=== PATIENT | male | born 1975 | race Caucasian/White ===

== ENCOUNTER 2017-09-17 21:02 | Inpatient (IN) | payer MEDICAID ==
[~2017-09-17] VITALS: Ht 175.3 cm; Wt 87.1 kg
[2017-09-17 21:07] VITALS: BP 154/77
--- NOTE | 2017-09-17 21:14 | NUR ---
PT.AMBULATED TO [facility]
--- NOTE | 2017-09-17 21:15 | NUR ---
TO ER CHAIR D
[2017-09-17] MEDS ORDERED: VANCOMYCIN IV STA (22:38)
[2017-09-17] MEDS ORDERED: NACL 0.9% 1,000 ML IV ONE (22:38)
[2017-09-17] MEDS ORDERED: DEXTROSE 5% IV STA (22:38)
--- NOTE | 2017-09-17 22:45 | NUR ---
Moved pt to Bed 4.
--- NOTE | 2017-09-17 22:58 | NUR ---
PAVITHRA ROSE AND LAB AT BEDSIDE-BLOOD SENT TO LAB
--- NOTE | 2017-09-17 23:10 | NUR ---
Flushed PICC line to right AC. Very strong resistance met and unable to draw blood and viability is questionable. Notified Dr Clark.
[2017-09-17] MEDS ORDERED: VANCOMYCIN 1,000 MG VIAL ONE (23:21)
[2017-09-17 23:27] LABS: BASOPHILS # (AUTO) 0.1 K/uL (0.00-0.22); BASOPHILS % (AUTO) 0.8 % (0.0-2.0); EOSINOPHILS # (AUTO) 0.2 K/uL (0-0.4); EOSINOPHILS % (AUTO) 3.4 % (0.0-4.0); HEMATOCRIT 32.5 % (36-52); HEMOGLOBIN 10.8 g/dL (12.0-18.0); LYMPHOCYTES # (AUTO) 0.9 K/uL (2.0-11.5); LYMPHOCYTES % (AUTO) 13.2 % (20.5-51.1); MEAN CORPUSCULAR HEMOGLOBIN 24 pg (27-31); MEAN CORPUSCULAR HGB CONC 33 g/dL (33-37); MEAN CORPUSCULAR VOLUME 71.8 fL (80-94); MONOCYTES # (AUTO) 0.3 K/uL (0.8-1.0); MONOCYTES % (AUTO) 5.3 % (1.7-9.3); PLATELET COUNT (AUTO) 286 K/uL (140-450); RED BLOOD CELL COUNT(AUTO) 4.53 MIL/uL (4.20-6.10); RED CELL DISTRIBUTION WIDTH 16.8 % (11.6-13.7); WHITE BLOOD COUNT (AUTO) 6.5 K/uL (4.8-10.8)
[2017-09-17 23:32] LABS: ANION GAP 12.2 (8-16); CARBON DIOXIDE 28.7 mmol/L (21-32); CREATININE 1.9 mg/dL (0.7-1.3); TOTAL BILIRUBIN 0.4 mg/dL (0.0-1.0)
[2017-09-17 23:35] LABS: NEUTROPHILS % (AUTO) 77.3 % (42.2-75.2)
[2017-09-17 23:37] LABS: PROTHROMBIN TIME 10.8 secs (10.8-13.4)
[2017-09-17 23:38] LABS: POTASSIUM 2.9 mmol/L (3.5-5.1)
[2017-09-18] VITALS (7 sets, daily range): BP systolic 119–157; BP diastolic 66–98
[2017-09-18] MEDS ORDERED: POTASSIUM CHLORIDE 10 MEQ TABER PO ONE (00:45)
[2017-09-18] MEDS ORDERED: NACL 0.9% 1,000 ML IV ONE (00:55)
[2017-09-18] MEDS ORDERED: KCL 20 MEQ/WATER INJ PREMIX 100 ML IV ONE (00:55)
[2017-09-18] MEDS ORDERED: ACETAMINOPHEN 325 MG TAB PO PRN (01:05)
[2017-09-18] MEDS ORDERED: HYDROcodone/APAP 7.5/325 MG 1 TAB PO PRN (01:05)
[2017-09-18] MEDS ORDERED: ONDANSETRON 4 MG/2 ML VIAL IVP PRN (01:05)
[2017-09-18] MEDS ORDERED: VANCOMYCIN PER PHARMACY MC PRN (01:15)
[2017-09-18] MEDS ORDERED: [UNRECOGNIZED DRUG - CODE] IV (01:36)
[2017-09-18 01:51] LABS: FREE T4 (FREE THYROXINE) 1.11 ng/dL (0.76-1.46); MAGNESIUM 1.9 mg/dL (1.8-2.4); PHOSPHORUS 3.4 mg/dL (2.5-4.9); THYROID STIMULATING HORMONE 2.15 uIU/mL (0.34-3.74)
--- NOTE | 2017-09-18 02:05 | NUR ---
Patient will be admitted to care of Dr Garcia. Admited to ICU. Will go to room 2. Belongings list completed. Report to Octavia.
--- NOTE | 2017-09-18 02:20 | NUR ---
PT ARRIVED IN THE UNIT AT 0210 VIA GURNEY. PT ABLE TO WALK FROM GURNEY TO BED. PT AWAKE, ALERT AND ORIENTED. ABLE TO MAKE NEEDS KNOWN. PT AFEBRILE. VS STABLE AT THIS TIME. PT ABLE TO ANSWER QUESTIONS AND PROVIDE INFORMATION. PT IS COOPERATIVE. LUNG SOUNDS CLEAR. PT IN ROOM AIR. NO C/O OF SOB. DOES NOT APPEAR TO BE IN ANY DISTRESS. S1+S2 HEARD. SINUS RHYTHM ON MONITOR. DENIES CHEST PAIN. PULSES ARE PALPABLE IN ALL EXTREMITIES. ABDOMEN ROUND, SOFT AND NONDISTENDED. BOWEL SOUNDS ACTIVE IN ALL QUADRANTS. LAST BM WAS 09/17/17. NO NAUSEA OR VOMITING. PT ABLE TO USE URINAL. NO REPORT OF PAIN WHILE URINATING. PT CAME IN THE UNIT WITH FER PICC LINE THAT HAS RESISTANCE WHEN ATTEMPTED TO FLUSH. PT HAS PERIPHERAL IV ACCESS 18G. RECEIVED PT WITH NS RUNNING AT 150ML/HR AND POTASSIUM REPLACEMENT RUNNING. PT DENIES PAIN. PT HAS NO PRESSURE SORES BUT HAS AN OPEN WOUND ON LEFT GREAT TOE THAT IS COVERED. WOUND MEASURED AND WAS 2.3X2. NEW DRESSING PUT IN PLACE AND PICTURE TAKEN. FOOT ELEVATED PER PT REQUEST. CALL LIGHT WITHIN REACH. BED AT LOW POSSIBLE POSITION. ALL SAFETY PRECAUTIONS ARE IN PLACE. WILL CONTINUE TO MONITOR PT.
--- NOTE | 2017-09-18 02:21 | NUR ---
Melissa williamson in EDM - 09/18/17 at 0222 by MEDMARIANA Patient will be admitted to care of Dr Garcia. Admited to ICU. Will go to room 2. Belongings list completed. Report to Octavia.
[2017-09-18] MEDS ORDERED: DEXTROSE 50% 50 ML SYR IVP PRN (02:30)
[2017-09-18] MEDS ORDERED: FERRIC GLUCONATE 125 MG in NACL 0.9% 100 ML IV SCH (03:00)
[2017-09-18] MEDS ORDERED: FERRIC GLUCONATE 62.5 MG/5 ML AMP IV ONE (03:15)
--- NOTE | 2017-09-18 05:12 | NUR ---
VS STABLE AT THIS TIME. NO CHANGE IN CONDITION. DOES NOT APPEAR TO BE IN ANY SIGNS OF DISTRESS. NO C/O PAIN. PT APPEARS TO BE LAYING IN BED COMFORTABLY. CALL LIGHT WITHIN REACH. ALL SAFETY PRECAUTIONS IN PLACE.
[2017-09-18] MEDS: BLOOD GLUCOSE MONITORING 1 DEV DEV FS SCH ×4 (06:32→20:36)
[2017-09-18] MEDS: INSULIN LISPRO SLIDING SCALE 100 UNITS/ML VIAL SUBQ PRN ×4 (06:33→20:39)
--- NOTE | 2017-09-18 07:02 | NUR ---
PATIENT HAS BEEN SCREENED AND CATEGORIZED MODERATE NUTRITION RISK. PATIENT WILL BE SEEN WITHIN 3-5 DAYS OF ADMISSION. 09/20/17-09/22/17 ELDA TERRY MS, RDN
--- NOTE | 2017-09-18 07:05 | NUR ---
REPORT GIVEN TO MORNING RN FOR CONTINUITY OF CARE. PT IN STABLE CONDITION AT THIS TIME.
[2017-09-18 07:19] LABS: BASOPHILS # (AUTO) 0.1 K/uL (0.00-0.22); EOSINOPHILS # (AUTO) 0.2 K/uL (0-0.4); EOSINOPHILS % (AUTO) 4.2 % (0.0-4.0); HEMATOCRIT 26.7 % (36-52); HEMOGLOBIN 8.9 g/dL (12.0-18.0); LYMPHOCYTES % (AUTO) 18.3 % (20.5-51.1); MEAN CORPUSCULAR HEMOGLOBIN 24 pg (27-31); MEAN CORPUSCULAR HGB CONC 34 g/dL (33-37); MEAN CORPUSCULAR VOLUME 71.5 fL (80-94); MONOCYTES # (AUTO) 0.4 K/uL (0.8-1.0); MONOCYTES % (AUTO) 7.5 % (1.7-9.3); PLATELET COUNT (AUTO) 230 K/uL (140-450); RED BLOOD CELL COUNT(AUTO) 3.73 MIL/uL (4.20-6.10); RED CELL DISTRIBUTION WIDTH 16.3 % (11.6-13.7); WHITE BLOOD COUNT (AUTO) 5.7 K/uL (4.8-10.8)
[2017-09-18 07:29] LABS: ANION GAP 13.7 (8-16); CARBON DIOXIDE 25.8 mmol/L (21-32); CREATININE 1.7 mg/dL (0.7-1.3); POTASSIUM 3.5 mmol/L (3.5-5.1)
--- NOTE | 2017-09-18 07:30 | NUR ---
Received patient on bed.Initial assessment done to patient.No co pain nor any discomfort .left toe dressing dry and intact.NSR the monitor.Pt on room air.pt uses the urinal Addendum: 09/18/17 at 1259 by Estefany Tillman RN RN PT WITH RIGHT UPPER PICC LINE WITH RESISTANCE WHEN FLUSHING .FLUSH GOES IN VERY SLOW..NO BLOOD RETURN .
[2017-09-18 07:46] LABS: MAGNESIUM 1.8 mg/dL (1.8-2.4); PHOSPHORUS 3.1 mg/dL (2.5-4.9)
[2017-09-18] MEDS: LACTOBACILLUS RHAMNOSUS GG 1 EACH CAP PO SCH (08:30)
[2017-09-18] MEDS: ECOTRIN 81 MG TABEC PO SCH (08:30)
[2017-09-18] MEDS: ATORVASTATIN 20 MG TAB PO SCH (08:30)
[2017-09-18] MEDS: DOCUSATE SODIUM 100 MG GELCAP PO SCH ×2 (08:30→20:31)
[2017-09-18] MEDS: VANCOMYCIN 500 MG in NACL 0.9% 100 ML IV SCH ×2 (11:30→23:09)
[2017-09-18] MEDS ORDERED: PROBIOTIC SCREEN 1 EA MISC MC PRN ×2 (12:00→14:00)
--- NOTE | 2017-09-18 12:00 | NUR ---
PT WITH RIGHT UPPER PICC LINE WITH RESISTANCE WHEN FLUSHING .FLUSH GOES IN VERY SLOW.NO BLOOD RETURN .DR DORADO NOTIFIED.
[2017-09-18] MEDS: PIPER/TAZO 3.375GM/D5W PREMIX 50 ML IV SCH ×2 (13:31→20:32)
--- NOTE | 2017-09-18 15:39 | NUR ---
RECEIVED REPORT FROM SABINO ARSHAD. PATIENT TO BE TRANSFERRED SHORTLY FROM ICU.
--- NOTE | 2017-09-18 15:39 | NUR ---
REPORT GIVEN TO ATA.GIRLFRIEND aware of transfer
--- NOTE | 2017-09-18 16:11 | NUR ---
PATIENT HERE FROM ICU, BROUGHT VIA WHEELCHAIR. PATIENT IS AAOX4, NO SIGNS AND SYMPTOMS OF ACUTE DISTRESS NOTED AT THIS TIME. HAS PICC LINE TO THE RIGHT UPPER ARM, LUMENS ARE HARD TO FLUSH. PATIENT ALSO HAS IV TO RIGHT HAND 18G. SALINE LOCK AT THIS TIME. PATIENT HAS DRESSING TO LEFT BIG TOE. SCDS ON. ORIENTED PATIENT TO THE ROOM, EXPLAINED THE CALL LIGHT. BED IN LOWEST POSITION, SIDE RAILS UP X2, CALL LIGHT WITHIN REACH. GIRLFRIEND AT THE BEDSIDE. WILL CONTINUE TO MONITOR.
--- NOTE | 2017-09-18 16:50 | NUR ---
Dr Greenberg notified pt co not being able to breath.Orders received for steriods. Respiratory therapist in the room. Addendum: 09/18/17 at 1654 by Estefany Tillman RN RN pls disregard above notes it is for a different patient.
--- NOTE | 2017-09-18 19:17 | NUR ---
ENDORSED PATIENT TO END STAPLER RN FOR CONTINUITY OF CARE. PATIENT IN STABLE CONDITION.
--- NOTE | 2017-09-18 19:20 | NUR ---
RECEIVED REPORT AT [facility] FROM [facility] NURSE FOR CONTINUITY OF CARE. PT IS AAO X4. PT IS ON RA. NO SOB. NO COMPLAINTS OF PAIN AT THIS TIME. IV LINE NOTED RIGHT UPPER ARM PICC LINE AND RIGHT HAND 18G SALINE LOCK. BED LOWERED WITH CALL LIGHT WITHIN REACH. WILL CONTINUE TO MONITOR.
--- NOTE | 2017-09-18 21:44 | NUR ---
ADVISE PT OF URINALYSIS. PT AWAKE. NO S/S OF DISTRESS. WILL CONTINUE TO MONITOR.
[2017-09-18 22:20] LABS: APPEARANCE,URINE CLEAR (CLEAR); BILIRUBIN,URINE NEGATIVE (NEGATIVE); BLOOD, URINE TRACE-I (NEGATIVE); LEUKOCYTE ESTERASE ,URINE NEGATIVE (NEGATIVE); NITRITE, URINE NEGATIVE (NEGATIVE); PH,URINE 6.5 (5.0-9.0); UGLUCOSE NEGATIVE (NEGATIVE)
[2017-09-18 22:22] LABS: COLOR,URINE STRAW (YELLOW)
[2017-09-18 22:40] LABS: BARBITURATE, URINE NEG. ng/ml (NEG <=200); BENZODIAZEPINE, URINE NEG. ng/mL (NEG <=200); CANNABINOID, URINE NEG. ng/mL (NEG <=50); COCAINE, URINE NEG. ng/mL (NEG <=300); OPIATE, URINE NEG. ng/mL (NEG <=2000); PHENCYCLIDINE SCREEN,URINE NEG. ng/mL (NEG <=25)
[2017-09-18 22:41] LABS: RBC,URINE 0-5 (RARE) /HPF (0-5); WBC,URINE 0-5 (RARE) /HPF (0-5)
--- NOTE | 2017-09-18 23:51 | NUR ---
GAVE PT MEDICATION AND ASSESS VITALS. PT IS SLEEPING. NO COMPLAINTS OF PAIN AT THIS TIME. NO SOB. NO S/S OF DISTRESS. WILL CONTINUE TO MONITOR.
[2017-09-19 04:00] VITALS: BP 118/72
--- NOTE | 2017-09-19 04:16 | NUR ---
TOOK PATIENTS VITAL SIGNS. PT ASLEEP. NO S/S OF DISTRESS, NO SOB. NO COMPLAINTS OF PAIN. WILL CONTINUE TO MONITOR.
[2017-09-19] MEDS: PIPER/TAZO 3.375GM/D5W PREMIX 50 ML IV SCH ×3 (04:48→20:36)
--- NOTE | 2017-09-19 04:56 | NUR ---
PT AMBULATED TO BR WITH STEADY GAIT, DUE ZOSYN IVPB ADMINISTERED, DENIES PAIN, PT REQUESTING FOR STOOL SOFTENER, OFFERED PRUNE JUICE AND SAID "THAT WILL BE REY", PROVIDED WITH PRUNE JUICE X2.
[2017-09-19] MEDS: BLOOD GLUCOSE MONITORING 1 DEV DEV FS SCH ×4 (06:17→21:46)
--- NOTE | 2017-09-19 06:20 | NUR ---
TOOK BLOOD SUGAR FOR PT BS 120. PT AWOKE ONCE I CAME INTO THE ROOM. PT WENT BACK TO SLEEP. NO SOB NO SIGNS OF DISTRESS. WILL CONTINUE TO MONITOR.
--- NOTE | 2017-09-19 07:14 | NUR ---
GAVE REPORT TO DAYSHIFT NURSE AT BEDSIDE. PT SLEEPING. NO SOB NO S/S OF DISTRESS.
--- NOTE | 2017-09-19 07:15 | NUR ---
RECEIVED REPORT FROM ADVERTISING DISPATCH CLERK RN. PATIENT IS AAOX4, NO SIGNS AND SYMPTOMS OF ACUTE DISTRESS NOTED AT THIS TIME. HAS PICC LINE TO THE RIGHT UPPER ARM, LUMENS ARE HARD TO FLUSH. PATIENT ALSO HAS IV TO LEFT WRIST 22G. SALINE LOCK AT THIS TIME. PATIENT HAS DRESSING TO LEFT BIG TOE. SCDS ON. DISCUSSED PLAN OF CARE WITH PATIENT AND HE VERBALIZED UNDERSTANDING. BED IN LOWEST POSITION, SIDE RAILS UP X2, CALL LIGHT WITHIN REACH. GIRLFRIEND AT THE BEDSIDE. WILL CONTINUE TO MONITOR.
[2017-09-19 08:00] VITALS: BP 145/80
[2017-09-19] MEDS: ATORVASTATIN 20 MG TAB PO SCH (08:46)
[2017-09-19] MEDS: LACTOBACILLUS RHAMNOSUS GG 1 EACH CAP PO SCH (08:46)
[2017-09-19] MEDS: ECOTRIN 81 MG TABEC PO SCH (08:47)
[2017-09-19] MEDS: HYDROcodone/APAP 5/325 MG 1 TAB TAB PO PRN ×2 (08:47→20:36)
[2017-09-19] MEDS: DOCUSATE SODIUM 100 MG GELCAP PO SCH ×2 (08:47→20:36)
--- NOTE | 2017-09-19 10:15 | NUR ---
DR GA CAME AND DID THE DRESSING CHANGE. PATIENT TOLERATED WELL. WILL CONTINUE TO MONITOR.
[2017-09-19 11:21] LABS: EOSINOPHILS # (AUTO) 0.2 K/uL (0-0.4); EOSINOPHILS % (AUTO) 4.9 % (0.0-4.0); HEMATOCRIT 28.8 % (36-52); HEMOGLOBIN 9.6 g/dL (12.0-18.0); LYMPHOCYTES # (AUTO) 0.8 K/uL (2.0-11.5); LYMPHOCYTES % (AUTO) 15.7 % (20.5-51.1); MEAN CORPUSCULAR HEMOGLOBIN 24 pg (27-31); MEAN CORPUSCULAR HGB CONC 33 g/dL (33-37); MEAN CORPUSCULAR VOLUME 71.8 fL (80-94); MONOCYTES # (AUTO) 0.4 K/uL (0.8-1.0); MONOCYTES % (AUTO) 7.6 % (1.7-9.3); NEUTROPHILS # (AUTO) 3.5 K/uL (1.8-7.7); NEUTROPHILS % (AUTO) 70.8 % (42.2-75.2); PLATELET COUNT (AUTO) 228 K/uL (140-450); RED BLOOD CELL COUNT(AUTO) 4.02 MIL/uL (4.20-6.10); RED CELL DISTRIBUTION WIDTH 16.8 % (11.6-13.7)
[2017-09-19 11:37] LABS: ANION GAP 12.8 (8-16); CARBON DIOXIDE 27.6 mmol/L (21-32); CREATININE 1.6 mg/dL (0.7-1.3); POTASSIUM 3.4 mmol/L (3.5-5.1)
[2017-09-19 11:39] LABS: MAGNESIUM 1.7 mg/dL (1.8-2.4); PHOSPHORUS 3.1 mg/dL (2.5-4.9)
[2017-09-19 12:00] VITALS: BP 131/77
[2017-09-19] MEDS: INSULIN LISPRO SLIDING SCALE 100 UNITS/ML VIAL SUBQ PRN ×3 (12:23→20:44)
[2017-09-19] MEDS: VANCOMYCIN 750 MG in NACL 0.9% 250 ML IV SCH (14:14)
[2017-09-19 16:00] VITALS: BP 121/77
--- NOTE | 2017-09-19 19:26 | NUR ---
ENDORSED PATIENT TO FOOD SERVICE COORDINATOR RN FOR CONTINUITY OF CARE. PATIENT IN STABLE CONDITION.
--- NOTE | 2017-09-19 19:27 | NUR ---
RECEIVED BEDSIDE REPORT FROM DAY SHIFT NURSE ATA RN, PT STABLE, NO DISTRESS NOTED, IV TO L WRIST 22G SL, PT ON ROOM AIR, NO SOB, FAMILY BY BEDSIDE, INITIAL ASSESSMENT DONE, ALL SAFETY PRECAUTION MET, WILL CONTINUE TO MONITOR.
[2017-09-19 20:00] VITALS: BP 142/79
--- NOTE | 2017-09-19 20:44 | NUR ---
DUE MEDICATION GIVEN, PT TOLERATED WELL, NO DISTRESS NOTED,CALL LIGHT WITHIN REACH, WILL CONTINUE TO MONITOR.
--- NOTE | 2017-09-19 22:10 | NUR ---
MOVED PT TO ROOM 126A, PT TOLERATED WELL, NO DISTRESS NOTED, CALL LIGHT WITHIN REACH, WILL CONTINUE TO MONITOR.
--- NOTE | 2017-09-19 23:54 | NUR ---
CHECKED ON PT, PT RESTING ON BED, NO DISTRESS NOTED, CALL LIGHT WITHIN REACH, WILL CONTINUE TO MONITOR.
[2017-09-20] VITALS: BP 149/80
[2017-09-20] MEDS ORDERED: LORazepam 1 MG TAB PO SCH (00:10)
--- NOTE | 2017-09-20 00:26 | NUR ---
PT STATED FEELING ANXIOUS AND UNABLE TO SLEEP, NOTIFIED DR. VILLALBA REGARDING PT CONCERNS, STATED SHE WILL ORDER MEDICATION FOR PT, ORDERED MEDICATION GIVEN, PT TOLERATED WELL, NO DISTRESS NOTED, CALL LIGHT WITHIN REACH, WILL CONTINUE TO MONITOR.
--- NOTE | 2017-09-20 01:26 | NUR ---
DUE MEDICATION GIVEN, PT TOLERATED WELL, NO DISTRESS NOTED, CALL LIGHT WITHIN REACH, WILL CONTINUE TO MONITOR.
[2017-09-20] MEDS: VANCOMYCIN 750 MG in NACL 0.9% 250 ML IV SCH ×2 (01:27→17:01)
[2017-09-20 04:00] VITALS: BP 138/81
--- NOTE | 2017-09-20 04:10 | NUR ---
CHECKED ON PT, PT SLEEPING,NO DISTRESS NOTED, CALL LIGHT WITHIN REACH, WILL CONTINUE TO MONITOR.
[2017-09-20] MEDS: PIPER/TAZO 3.375GM/D5W PREMIX 50 ML IV SCH (04:45)
--- NOTE | 2017-09-20 04:45 | NUR ---
DUE MEDICATION ADMINISTERED, PT TOLERATED WELL, NO DISTRESS NOTED, CALL LIGHT WITHIN REACH, PT SLEEPING, WILL CONTINUE TO MONITOR.
[2017-09-20] MEDS: BLOOD GLUCOSE MONITORING 1 DEV DEV FS SCH ×4 (06:04→20:53)
[2017-09-20 06:43] LABS: BASOPHILS # (AUTO) 0.1 K/uL (0.00-0.22); EOSINOPHILS # (AUTO) 0.3 K/uL (0-0.4); EOSINOPHILS % (AUTO) 6.6 % (0.0-4.0); HEMATOCRIT 26.1 % (36-52); HEMOGLOBIN 8.5 g/dL (12.0-18.0); LYMPHOCYTES % (AUTO) 20.1 % (20.5-51.1); MEAN CORPUSCULAR HEMOGLOBIN 24 pg (27-31); MEAN CORPUSCULAR HGB CONC 33 g/dL (33-37); MEAN CORPUSCULAR VOLUME 72.5 fL (80-94); MONOCYTES # (AUTO) 0.5 K/uL (0.8-1.0); NEUTROPHILS # (AUTO) 3.2 K/uL (1.8-7.7); NEUTROPHILS % (AUTO) 63.3 % (42.2-75.2); PLATELET COUNT (AUTO) 192 K/uL (140-450); RED CELL DISTRIBUTION WIDTH 17.3 % (11.6-13.7)
[2017-09-20] MEDS ORDERED: POTASSIUM CHLORIDE 10 MEQ TABER PO SCH (07:02)
--- NOTE | 2017-09-20 07:10 | NUR ---
ENDORSED PLAN OF CARE TO DAY SHIFT NURSE CHONG RN, PT STABLE, NO DISTRESS NOTED, CALL LIGHT WITHIN REACH.
--- NOTE | 2017-09-20 07:11 | NUR ---
RECEIVED REPORT FROM PEG DRIVER.PT ALERT AND ORIENTED X3,V/S STABLE. NPO FOR OP FOR AMPUTATION LT TOE. CONSENT SIGNED.V/S STABLE.LYING BED COMFORTABLY. WILL CONTINUE TO MONITORING.
[2017-09-20 07:13] LABS: ANION GAP 11.8 (8-16); CARBON DIOXIDE 27.2 mmol/L (21-32); CREATININE 1.7 mg/dL (0.7-1.3)
[2017-09-20 07:16] LABS: MAGNESIUM 1.7 mg/dL (1.8-2.4); PHOSPHORUS 3.4 mg/dL (2.5-4.9)
[2017-09-20 08:00] VITALS: BP 133/76
--- NOTE | 2017-09-20 10:00 | NUR ---
PATIENT NPO FOR OPERATION.V/S STABLE.LYING IN BED COMFORTABLY.NO DISTRESS NOTED.
[2017-09-20 12:00] VITALS: BP 132/60
--- NOTE | 2017-09-20 12:00 | NUR ---
PODIATRY DR CAME TO BED AND EXPLAIN TO CANCELLED OPERATION TODAY AND RESCHEDULE FOR WED-.ALERT AND ORIENTED X3 NO DISTRESS.CALL TO KITCHEN TO LUNCH. CALL LIGHT WITHIN REACH AND CONTINUE MONITORING.
--- NOTE | 2017-09-20 14:55 | NUR ---
CM NOTE CONCURRENT REVIEW DONE
--- NOTE | 2017-09-20 16:00 | NUR ---
PATIENT LYING IN BED COMFORTABLY AND NO DISTRESS.CALL LIGHT WITHIN REACH. CONTINUE TO MONITORING.
[2017-09-20] MEDS: ECOTRIN 81 MG TABEC PO SCH (16:58)
[2017-09-20] MEDS: ATORVASTATIN 20 MG TAB PO SCH (16:59)
[2017-09-20] MEDS: DOCUSATE SODIUM 100 MG GELCAP PO SCH ×2 (16:59→20:47)
[2017-09-20] MEDS: LACTOBACILLUS RHAMNOSUS GG 1 EACH CAP PO SCH (17:00)
[2017-09-20 18:00] VITALS: BP 133/60
--- NOTE | 2017-09-20 19:20 | NUR ---
GIVE REPORT TO STAND UP FORKLIFT OPERATOR,NO DISTRESS.
--- NOTE | 2017-09-20 19:21 | NUR ---
RECEIVED REPORT FROM RN AT BEDSIDE. PT RESTING IN BED. AAOX4. NO S/S OF ACUTE DISTRESS. PT DENIES PAIN. IV SITE PT LEFT WRIST INFUSING. RIGHT UPPER ARM PICC UNABLE TO FLUSH OR ASPIRATE. DRESSING TO LEFT FOOT DRY AND INTACT. CALL LIGHT WITHIN REACH. SAFETY MEASURES ENSURED. WILL CONTINUE TO MONITOR.
[2017-09-20 20:00] VITALS: BP 142/84
[2017-09-20] MEDS: LEVOFLOXACIN 750 MG/D5W PREMIX 150 ML IV SCH (20:46)
[2017-09-20] MEDS: HYDROcodone/APAP 5/325 MG 1 TAB TAB PO PRN (20:47)
--- NOTE | 2017-09-20 20:53 | NUR ---
DUE MEDS GIVEN NO S/S OF ACUTE DISTRESS. PT STATES PAIN. MEDICATED ORDERED. WILL CONTINUE TO MONITOR.
[2017-09-20] MEDS: INSULIN LISPRO SLIDING SCALE 100 UNITS/ML VIAL SUBQ PRN (20:59)
--- NOTE | 2017-09-20 22:57 | NUR ---
ENDORSED PLAN OF CARE TO RN AT BEDSIDE. PT STABLE.
[2017-09-20] MEDS: ZOLPIDEM 5 MG TAB PO SCH (23:52)
[2017-09-21] VITALS: BP 132/77
--- NOTE | 2017-09-21 02:00 | NUR ---
PATIENT ASLEEP IN BED. NO S/S OF DISTRESS
[2017-09-21] MEDS: VANCOMYCIN 750 MG in NACL 0.9% 250 ML IV SCH ×2 (03:26→14:56)
[2017-09-21] MEDS: HYDROcodone/APAP 5/325 MG 1 TAB TAB PO PRN (03:36)
[2017-09-21 04:00] VITALS: BP 126/75
[2017-09-21] MEDS ORDERED: MAGNESIUM OXIDE 400 MG TAB PO SCH (06:00)
[2017-09-21] MEDS ORDERED: POTASSIUM CHLORIDE 10 MEQ TABER PO SCH (06:00)
[2017-09-21] MEDS: BLOOD GLUCOSE MONITORING 1 DEV DEV FS SCH ×4 (06:42→21:20)
--- NOTE | 2017-09-21 07:25 | NUR ---
PATIENT REPORT GIVEN AT BEDSIDE. PATIENT ENDORSED IN STABLE CONDITION
[2017-09-21 07:35] LABS: FOLIC ACID 6.6 ng/mL (>3.0)
[2017-09-21 08:00] VITALS: BP 151/93
[2017-09-21] MEDS: CLINICAL MONITORING MC SCH (09:00)
[2017-09-21] MEDS: ECOTRIN 81 MG TABEC PO SCH (10:09)
[2017-09-21] MEDS: LACTOBACILLUS RHAMNOSUS GG 1 EACH CAP PO SCH (10:09)
[2017-09-21] MEDS: DOCUSATE SODIUM 100 MG GELCAP PO SCH ×2 (10:09→21:21)
[2017-09-21] MEDS: ATORVASTATIN 20 MG TAB PO SCH (10:09)
[2017-09-21 10:43] LABS: ANION GAP 7.1 (8-16); CARBON DIOXIDE 30.9 mmol/L (21-32); CREATININE 1.7 mg/dL (0.7-1.3)
[2017-09-21 12:00] VITALS: BP 154/82
[2017-09-21 16:00] VITALS: BP 168/84
--- NOTE | 2017-09-21 16:55 | NUR ---
D/C PICC LINE TO R UPPER ARM. CATHETER TIP INTACT. APPLIED DRESSING AND PRESSURE TO SITE. NO SUTURES ON PICC LINE. NO BLEEDING NOTED. PT TOLERATED WELL
--- NOTE | 2017-09-21 17:57 | NUR ---
REPORTED TO DR. DORADO PT'S BP 168/84. PT DENIES H/A, STATED HE FEELS OK. WILL CONTINUE TO MONITOR.
[2017-09-21] MEDS: LEVOFLOXACIN 750 MG/D5W PREMIX 150 ML IV SCH (18:04)
--- NOTE | 2017-09-21 19:15 | NUR ---
RECEIVED PATIENT REPORT AT BEDSIDE. PATIENT AWAKE, ALERT AND ORIENTED. NO S/S OF DISTRESS. NO C/O PAIN AT THIS TIME. DRESSING ON THE LEFT FOOT CLEAN, DRY AND INTACT. PATIENT ON TELE MONITORING. BED LOWERED WITH CALL LIGHT WITHIN REACH. WILL CONTINUE TO MONITOR
--- NOTE | 2017-09-21 19:30 | NUR ---
ENDORSED PT TO SCHEDULE SUPERVISOR NURSE AT BEDSIDE FOR CONTINUITY OF CARE. PT IN STABLE CONDITION.
[2017-09-21 20:01] VITALS: BP 147/89
[2017-09-21] MEDS ORDERED: ZOLPIDEM 5 MG TAB PO SCH (21:00)
[2017-09-21] MEDS: ZOLPIDEM 5 MG TAB PO SCH (21:21)
[2017-09-21] MEDS: INSULIN LISPRO SLIDING SCALE 100 UNITS/ML VIAL SUBQ PRN (21:27)
[2017-09-22] VITALS: BP 162/95
--- NOTE | 2017-09-22 00:41 | NUR ---
MADE DR VILLALBA AWARE OF PATIENT'S ELEVATED BP
--- NOTE | 2017-09-22 02:00 | NUR ---
PATIENT COMFORTABLY RESTING IN BED. NO S/S OF DISTRESS NOTED
[2017-09-22] MEDS: HYDROcodone/APAP 5/325 MG 1 TAB TAB PO PRN (02:06)
[2017-09-22] MEDS: VANCOMYCIN 750 MG in NACL 0.9% 250 ML IV SCH ×2 (02:06→14:00)
[2017-09-22 04:00] VITALS: BP 143/65
[2017-09-22 06:11] LABS: BASOPHILS % (AUTO) 0.8 % (0.0-2.0); EOSINOPHILS # (AUTO) 0.2 K/uL (0-0.4); EOSINOPHILS % (AUTO) 4.4 % (0.0-4.0); HEMOGLOBIN 9.4 g/dL (12.0-18.0); LYMPHOCYTES # (AUTO) 0.9 K/uL (2.0-11.5); LYMPHOCYTES % (AUTO) 17.9 % (20.5-51.1); MEAN CORPUSCULAR HEMOGLOBIN 24 pg (27-31); MEAN CORPUSCULAR HGB CONC 34 g/dL (33-37); MEAN CORPUSCULAR VOLUME 71.8 fL (80-94); MONOCYTES # (AUTO) 0.5 K/uL (0.8-1.0); MONOCYTES % (AUTO) 10.2 % (1.7-9.3); NEUTROPHILS # (AUTO) 3.2 K/uL (1.8-7.7); NEUTROPHILS % (AUTO) 66.7 % (42.2-75.2); PLATELET COUNT (AUTO) 205 K/uL (140-450); RED BLOOD CELL COUNT(AUTO) 3.89 MIL/uL (4.20-6.10); RED CELL DISTRIBUTION WIDTH 17.4 % (11.6-13.7); WHITE BLOOD COUNT (AUTO) 4.8 K/uL (4.8-10.8)
--- NOTE | 2017-09-22 07:08 | NUR ---
PATIENT REPORT GIVEN AT BEDSIDE. PATIENT ENDORSED IN STABLE CONDITION
--- NOTE | 2017-09-22 07:09 | NUR ---
RECEIVED REPORT FROM STORE OPERATIONS MANAGER NURSE MAVIS AT BEDSIDE FOR CONTINUITY OF CARE. PT IS AWAKE AND ORIENTED X4. INTRODUCED SELF AND UPDATED BOARD. PT DENIES PAIN. LUNG SOUNDS CLEAR ON AUSCULTATION. O2 SAT 98% ON RA. PT LYING IN BED NOW. NPO AT THIS TIME. PT AWARE FOR PROCEDURE LATER TODAY. NO COMPLAINTS AT THIS TIME. BED IN LOW POSITION, WHEELS LOCKED, CALL LIGHT WITHIN REACH. WILL CONTINUE TO MONITOR.
[2017-09-22] MEDS: BLOOD GLUCOSE MONITORING 1 DEV DEV FS SCH ×4 (07:30→21:35)
[2017-09-22 08:00] VITALS: BP 167/88
[2017-09-22] MEDS: FERROUS GLUCONATE 324 MG TAB PO SCH (08:00)
[2017-09-22 08:52] LABS: ANION GAP 16.2 (8-16); CARBON DIOXIDE 25.1 mmol/L (21-32); CREATININE 1.5 mg/dL (0.7-1.3); POTASSIUM 3.3 mmol/L (3.5-5.1)
[2017-09-22 08:58] LABS: MAGNESIUM 1.6 mg/dL (1.8-2.4); PHOSPHORUS 3.2 mg/dL (2.5-4.9)
[2017-09-22] MEDS: DOCUSATE SODIUM 100 MG GELCAP PO SCH ×2 (09:00→21:22)
[2017-09-22] MEDS: ECOTRIN 81 MG TABEC PO SCH (09:00)
[2017-09-22] MEDS: ATORVASTATIN 20 MG TAB PO SCH (09:00)
[2017-09-22] MEDS: CLINICAL MONITORING MC SCH (09:00)
[2017-09-22] MEDS: LACTOBACILLUS RHAMNOSUS GG 1 EACH CAP PO SCH (09:00)
[2017-09-22] MEDS ORDERED: MAG SULF 2000 MG/WATER PREMIX 50 ML IV SCH (11:00)
[2017-09-22] MEDS ORDERED: POTASSIUM CHLORIDE 10 MEQ TABER PO SCH ×2 (11:04→15:30)
[2017-09-22 12:00] VITALS: BP 142/85
--- NOTE | 2017-09-22 12:00 | NUR ---
PT OFF UNIT FOR SURGERY. LEFT IN STABLE CONDITION
[2017-09-22] MEDS ORDERED: BUPIVACAINE-MPF 0.5% 30 ML VIAL INJ ONE (12:05)
[2017-09-22] MEDS ORDERED: LIDOCAINE MPF 1% - **ER/OR** 5 ML ONE (12:05)
[2017-09-22] MEDS ORDERED: MORPHINE SULFATE 4 MG/ML SYR ONE (12:20)
[2017-09-22] MEDS ORDERED: MIDAZOLAM 2 MG/2 ML VIAL ONE (12:20)
[2017-09-22] MEDS ORDERED: fentaNYL 0.05 MG/ML VIAL ONE (12:20)
[2017-09-22] MEDS ORDERED: MIDAZOLAM 2 MG/2 ML VIAL IV ONE ×2 (12:50)
[2017-09-22] MEDS ORDERED: MORPHINE SULFATE 4 MG/ML SYR IVP PRN ×5 (12:50→13:08)
[2017-09-22] MEDS ORDERED: MORPHINE SULFATE 2 MG/ML SYR IVP PRN ×2 (12:50)
--- NOTE | 2017-09-22 13:45 | NUR ---
PT BACK FROM OR. RECEIVED REPORT FROM LIFE SKILLS COORDINATORPAVITHRA SINCLAIR. PT IS AWAKE AND ORIENTED. PT IN STABLE CONDITION.
--- NOTE | 2017-09-22 14:54 | NUR ---
09/22/17 RD INITIAL ASSESSMENT COMPLETED PLEASE REFER TO NUTRITION ASSESSMENT UNDER CARE ACTIVITY FOR ESTIMATED NUTRITIONAL NEEDS. 1. CONTINUE CCHO 60 GM DIET TOLERATED 2. PROVIDE PT WITH DIABETIC DIET EDUCATION 3. RD TO FOLLOW-UP 3-5 DAYS, MODERATE RISK SUE GROVER RD
[2017-09-22 16:00] VITALS: BP 145/82
--- NOTE | 2017-09-22 17:00 | NUR ---
PT BS WAS 260. ADMINISTERED 6 UNITS INSULIN. PT TOLERATED WELL. PT DENIES PAIN. SITTING UP IN BED ON PHONE. NO SIGNS OF DISTRESS. WILL CONTINUE TO MONITOR.
[2017-09-22] MEDS: LEVOFLOXACIN 750 MG/D5W PREMIX 150 ML IV SCH (17:09)
[2017-09-22] MEDS: INSULIN LISPRO SLIDING SCALE 100 UNITS/ML VIAL SUBQ PRN ×2 (17:23→21:17)
--- NOTE | 2017-09-22 19:20 | NUR ---
ENDORSED PT TO ACID LOADER NURSE JOCY AT BEDSIDE FOR CONTINUITY OF CARE. PT IN STABLE CONDITION.
--- NOTE | 2017-09-22 19:21 | NUR ---
RECEIVED REPORT FROM DAY SHIFT NURSE RACHEL-PAVITHRA. PT RESTING IN BED. AOX4, IV LEFT WRIST #22G RUNNING AT 10ML/HR. LEFT TOE AMPUTATION, WRAPPED-SURGERY ON 09/[address] GA. NO S/S OF RESPIRATORY DISTRESS OR DISCOMFORT AT THIS TIME. BED IN LOWEST POSITION, BREAKS LOCKED. BED SIDE TABLE AND CALL LIGHT WITHIN REACH. WILL CONTINUE TO MONITOR.
[2017-09-22 20:00] VITALS: BP 158/84
[2017-09-22] MEDS: ZOLPIDEM 5 MG TAB PO SCH (21:22)
--- NOTE | 2017-09-22 21:35 | NUR ---
SCHEDULED MEDICATIONS GIVEN. PT TOLERATED WELL. WILL CONTINUE TO MONITOR.
--- NOTE | 2017-09-22 23:05 | NUR ---
PT C/O 08/21 PAIN. MORPHINE SULFATE 2MG GIVEN ORDERED FOR PAIN. WILL CONTINUE TO MONITOR.
[2017-09-23] VITALS: BP 159/95
[2017-09-23] MEDS: VANCOMYCIN 750 MG in NACL 0.9% 250 ML IV SCH (02:03)
--- NOTE | 2017-09-23 02:05 | NUR ---
PT C/O 01/21 PAIN. MORPHINE SULFATE ADMINISTERED FOR PRN PAIN. WILL CONTINUE TO MONITOR.
[2017-09-23 04:00] VITALS: BP 156/88
--- NOTE | 2017-09-23 04:00 | NUR ---
PT CONTINUES TO SLEEP. WILL CONTINUE TO MONITOR
[2017-09-23] MEDS: BLOOD GLUCOSE MONITORING 1 DEV DEV FS SCH (06:06)
[2017-09-23 06:32] LABS: BASOPHILS % (AUTO) 0.6 % (0.0-2.0); EOSINOPHILS % (AUTO) 0.8 % (0.0-4.0); HEMATOCRIT 29.8 % (36-52); LYMPHOCYTES # (AUTO) 0.7 K/uL (2.0-11.5); LYMPHOCYTES % (AUTO) 12.9 % (20.5-51.1); MEAN CORPUSCULAR HEMOGLOBIN 24 pg (27-31); MEAN CORPUSCULAR HGB CONC 34 g/dL (33-37); MEAN CORPUSCULAR VOLUME 71.8 fL (80-94); MONOCYTES # (AUTO) 0.4 K/uL (0.8-1.0); MONOCYTES % (AUTO) 6.9 % (1.7-9.3); NEUTROPHILS # (AUTO) 4.2 K/uL (1.8-7.7); NEUTROPHILS % (AUTO) 78.8 % (42.2-75.2); PLATELET COUNT (AUTO) 231 K/uL (140-450); RED BLOOD CELL COUNT(AUTO) 4.15 MIL/uL (4.20-6.10); RED CELL DISTRIBUTION WIDTH 17.5 % (11.6-13.7); WHITE BLOOD COUNT (AUTO) 5.4 K/uL (4.8-10.8)
[2017-09-23 06:55] LABS: ANION GAP 14.6 (8-16); CARBON DIOXIDE 27.1 mmol/L (21-32); CREATININE 1.5 mg/dL (0.7-1.3); POTASSIUM 3.7 mmol/L (3.5-5.1)
[2017-09-23 07:18] LABS: MAGNESIUM 1.9 mg/dL (1.8-2.4); PHOSPHORUS 3.4 mg/dL (2.5-4.9)
[2017-09-23] MEDS: FERROUS GLUCONATE 324 MG TAB PO SCH ×2 (07:34→08:49)
--- NOTE | 2017-09-23 07:37 | NUR ---
ENDORSED PT TO DAY SHIFT NURSE. PT IN STABLE CONDITION
--- NOTE | 2017-09-23 07:40 | NUR ---
RECEIVED BEDSIDE REPORT FROM LEATHER STAMPER NURSE. PATIENT IS AWAKE. ALERT AND ORIENTEDX4. NO S/SX OF DISTRESS ON ROOM AIR. NO COMPLAINTS AT THIS TIME. IV ON L WRIST 22 G TKO AT 10ML/HR. IV SITE IS CLEAN,DRY AND INTACT. SKIN IS NON INTACT. L BIG TOE AMPUTATION. SITE IS BANDAGED. TELE MONITOR IS IN PLACE. PATIENT IS AMBULATORY WITH ASSIST. BED IN LOW POSITION. CALL LIGHT WITHIN REACH. WILL CONTINUE TO MONITOR PATIENT.
[2017-09-23] MEDS: DOCUSATE SODIUM 100 MG GELCAP PO SCH (08:40)
[2017-09-23] MEDS: ATORVASTATIN 20 MG TAB PO SCH (08:40)
[2017-09-23] MEDS: LACTOBACILLUS RHAMNOSUS GG 1 EACH CAP PO SCH (08:40)
[2017-09-23] MEDS: ECOTRIN 81 MG TABEC PO SCH (08:40)
--- NOTE | 2017-09-23 08:50 | NUR ---
ADMINISTERED MORNING MEDS. PATIENT TOLERATED MEDS WELL. PATIENT HAS NO COMPLAINTS AT THIS TIME. CALL LIGHT WITHIN REACH, WILL CONTINUE TO MONITOR PATIENT.
[2017-09-23] MEDS ORDERED: DOCU-299 PO (08:58)
[2017-09-23] MEDS ORDERED: ACET-9525 PO (08:58)
[2017-09-23] MEDS ORDERED: LEVO750T51 PO (08:58)
[2017-09-23] MEDS ORDERED: LACT10CA PO (08:58)
--- NOTE | 2017-09-23 10:30 | NUR ---
PATIENT CURRENTLY SLEEPING. WILL GET DISCHARGE PAPER READY FOR PATIENT TO SIGN. WILL CONTINUE TO MONITOR PATIENT.
[2017-09-23] MEDS ORDERED: ONDANSETRON 4 MG/2 ML VIAL IVP ONE (11:50)
[2017-09-23] MEDS ORDERED: PROPOFOL 200 MG/20 ML VIAL IV ONE (11:50)
[2017-09-23] MEDS ORDERED: SEVOFLURANE 250 ML BTL INH ONE (11:50)
[2017-09-23] MEDS ORDERED: DEXAMETHASONE 4 MG/ML VIAL IVP ONE (11:50)
[2017-09-23] MEDS: INSULIN LISPRO SLIDING SCALE 100 UNITS/ML VIAL SUBQ PRN (12:29)
--- NOTE | 2017-09-23 12:39 | NUR ---
INSULIN WAS GIVEN PER ORDER. PATIENT WAS INSTRUCTED TO EAT FOOD BEFORE LEAVING. IV WAS REMOVED, CATHETER INTACT, NO ACTIVE BLEEDING SEEN, PATIENT TOLERATED WELL. ID BAND AND SEQUINS WINDER WERE REMOVED. PRIMARY NURSE LEE WAS INFORMED.
--- NOTE | 2017-09-23 12:50 | NUR ---
DISCHARGE INSTRUCTIONS AND PACKET GIVEN. EDUCATED PATIENT, VERBALIZED UNDERSTANDING. REMOVED IV, IV IS INTACT. REMOVED TELE MONITOR AND ID BANDS. PATIENT IS ALERT AND ORIENTED X4. L BIG TOE AMPUTATION IS BANDAGED. POST OP SHOE IN PLACE. CRUTCHES WITH . FOLLOW UP APPOINTMENTS MADE BY DOCTOR. PATIENT IS AWARE. DROPPED OFF PATIENT TO THE LOBBY WITH HIS VIA WHEELCHAIR. PATIENT DISCHARGED IN STABLE CONDITION.
--- NOTE | 2017-09-23 12:55 | NUR ---
CM NOTE PER TAMIKO FROM [facility], WILL BE ABLE TO SUPPLY CRUTCHES BUT NOT POST OP SHOE. CLINICAL INFORMATION FAXED TO [phone]. PER VIVI FROM [facility], WILL BE ABLE TO SUPPLY POST OP SHOE. CLINICAL INFORMATION FAXED TO [phone]
== END 2017-09-23 12:50 | disposition home or self-care (01) | DRG 314 ==
LOC: MED 21:02 → MIC 09-18 01:04 → MTU 09-18 16:15 → MMU 09-19 22:14 → MTU 09-22 17:46
PROVIDERS: ADMIT Student in an Organized Health Care Education/Training Program; ATTEND Student in an Organized Health Care Education/Training Program
PROC: 0Y6Q0Z0 Detachment at Left 1st Toe, Complete, Open Approach (ICD-10-PCS; principal; 2017-09-23)
DX: E11.69 Type 2 diabetes mellitus with other specified complication (principal); N17.0 Acute kidney failure with tubular necrosis; E44.0 Moderate protein-calorie malnutrition; E11.40 Type 2 diabetes mellitus with diabetic neuropathy, unspecified; D68.59 Other primary thrombophilia; E11.65 Type 2 diabetes mellitus with hyperglycemia; E11.621 Type 2 diabetes mellitus with foot ulcer; L97.529 Non-pressure chronic ulcer of other part of left foot with unspecified severity; E87.6 Hypokalemia; E78.5 Hyperlipidemia, unspecified; D50.9 Iron deficiency anemia, unspecified; E83.42 Hypomagnesemia; M86.8X7 Other osteomyelitis, ankle and foot; Z79.4 Long term (current) use of insulin; Z68.28 Body mass index [BMI] 28.0-28.9, adult
CPT/HCPCS: 36415; 71045; 73630; 80048; 80053; 80202; 80305; 81001; 82150; 82607; 82728; 82746; 82948; 83036; 83540; 83605; 83690; 83735; 83880; 84100; 84439; 84443; 84484; 85025; 85045; 85610; 85730; 87040; 87070; 87075; 87081; 87186; 87205; 88305; 88311; 93005; 93925; 93970; 96365; 96367; 97110; 97140; 97535; 99285; J1100; J1644; J1815; J1956; J2001; J2250; J2270; J2405; J2543; J2704; J2916; J3010; J3370; J3475; J3480; J3490; J7030; J7060; Q0092